=== PATIENT | male | born 2000 | race Caucasian/White ===

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

== ENCOUNTER 2020-09-15 21:19 | Emergency (ER) | payer OTHER ==
[~2020-09-15] VITALS: Ht 188 cm; Wt 104.3 kg
[~2020-09-15 21:19] MED LIST changes: +IBUPROFEN 800800 M1 PO
[2020-09-15 23:06] VITALS: BP 153/86
== END 2020-09-15 23:07 | disposition home or self-care (01) ==
LOC: M.ERS 21:19
DX: M24.411 Recurrent dislocation, right shoulder (principal)